=== PATIENT | female | born 1980 | race African-American/Black ===

== ENCOUNTER → 2017-08-08 | Outpatient (CLI) | payer BC ==
[~2017-08-08] MED LIST: LISI10TA3 PO; METF1000 PO; PERC5TAB12 PO; Z.0.NO CURRENT MEDS
[2017-08-08 11:55] LABS: HEMATOCRIT 36.6 % (35.0-46.0); HEMOGLOBIN 12.5 GM/DL (11.6-15.3); MEAN CORPUSCULAR HEMOGLOBIN 28.1 PG (27.0-34.0); MEAN CORPUSCULAR HGB CONC 34.3 % (32.0-36.0); MEAN PLATELET VOLUME 6.9 FL (7.0-11.0); PLATELET COUNT 379 TH/MM3 (150-450); RED BLOOD COUNT 4.46 MIL/MM3 (4.00-5.30); RED CELL DISTRIBUTION WIDTH 14.3 % (11.6-17.2); WHITE BLOOD COUNT 7.4 TH/MM3 (4.0-11.0)
== END ==
LOC: CPRE 11:04
PROVIDERS: ATTEND Obstetrics & Gynecology
DX: Z01.812 Encounter for preprocedural laboratory examination (principal); O02.1 Missed abortion
CPT/HCPCS: 36415; 85027; 86850; 86900; 86901

== ENCOUNTER 2017-08-10 22:50 | Emergency (ER) | payer BC ==
[~2017-08-10] VITALS: Ht 172.7 cm; Wt 105.0 kg
[~2017-08-10 22:50] MED LIST changes: -ACETAMINOPHEN/HYDROcodone 325 MG/5 MG TAB PO PRN; -CHLORHEXIDINE GLUCONATE 2 % 1 PACK (2 CLOTHS) TOPICAL PRN; -DO NOT ADM ANY ANTICOAGULANT DRUGS PRN; -FAMOTIDINE 20 MG/2 ML VIAL ONE; -LACTATED RINGER'S 1000 ML IV PRN; -LIDOCAINE HCL 1% PF 5 ML SYRINGE OTHER ONE; -METOCLOPRAMIDE HCL 10 MG/2 ML VIAL ONE; -METOPROLOL TARTRATE 25 MG TAB PO PRN; -MIDAZOLAM HCL 2 MG/2 ML VIAL ONE; -ONDANSETRON ODT 4 MG TAB PO PRN; -PERC5TAB12 PO; -POVIDONE IODINE 5% (ANTISEPSIS KIT) 4 APPLICATIONS EACH NARE PRN; -PROPOFOL 200 MG/20 ML AMP IV ONE; -SODIUM CHLORID 0.9% 500 ML IV PRN; -Z.0.NO CURRENT MEDS; -oxyCODONE/ACETAMINOPHEN 5 MG/325 MG TAB ONE; -oxyCODONE/ACETAMINOPHEN 5 MG/325 MG TAB PO ONE
[2017-08-10 23:20] VITALS: BP 146/90; PULSE 130; RESP 18; TEMP 97.6; O2SAT 100
[2017-08-11 00:34] VITALS: BP 127/73; PULSE 119; RESP 18; O2SAT 100
--- NOTE | 2017-08-11 00:56 | PD ---
HPI Chief Complaint: Abdominal Pain Time Seen by Provider: 00:29 Travel History International Travel<30 days: No Contact w/Intl Traveler<30days: No Traveled to known affect area: No History of Present Illness HPI Patient is a 37-year-old female who had a D&C earlier today she said she was 10 weeks . Patient is having severe cramping lower back pain she said the bleeding is slowing down but she is worried due to the fact that she feels a lot of pressure in her back and her abdomen. She said that she is not as worried about the bleeding as she is about the pressure feeling as if she is going to explode after urinating worried that she could have UTI she took 3 hydrocodone without relief of her symptoms she is mildly tachycardic 120 afebrile and her abdomen pain is diffuse and mid lower back PFSH Past Medical History Cancer: No Cardiovascular Problems: No High Cholesterol: Yes Diabetes: Yes Patient Takes Glucophage: No Diminished Hearing: No Endocrine: No Hepatitis: No Hiatal Hernia: No Immune Disorder: No Musculoskeletal: No Neurologic: No Psychiatric: No Reproductive: Yes Respiratory: No Immunizations Current: Yes Thyroid Disease: No ?: Not Dilation and Curettage (D&C): Yes Past Surgical History AICD: No Joint Replacement: No Pacemaker: No Social History Alcohol Use: Yes Tobacco Use: Yes Substance Use: No Allergies-Medications (Allergen,Severity, Reaction): Coded Allergies: No Known Allergies (Verified Allergy, Unknown, 08/11/17) Reported Meds & Prescriptions Reported Meds & Active Scripts Active Reported Lisinopril 10 Mg Tab 10 Mg PO DAILY Metformin (Metformin HCl) 1,000 Mg Tab 1,000 Mg PO BIDPC Review of Systems Except as stated in HPI: all other systems reviewed are Neg Physical Exam Narrative GENERAL: Patient appears uncomfortable slightly tachycardic sinus tach 112-120 mildly obese SKIN: Warm and dry. HEAD: Atraumatic. Normocephalic. EYES: Pupils equal and round. No scleral icterus. No injection or drainage. ENT: No nasal bleeding or discharge. Mucous membranes pink and moist. NECK: Trachea midline. No JVD. CARDIOVASCULAR: Regular rate and rhythm. RESPIRATORY: No accessory muscle use. Clear to auscultation. Breath sounds equal bilaterally. GASTROINTESTINAL: Abdomen diffuse lower abdominal pain as well as mid lower back pain MUSCULOSKELETAL: Extremities without clubbing, cyanosis, or edema. No obvious deformities. NEUROLOGICAL: Awake and alert. No obvious cranial nerve deficits. Motor grossly within normal limits. Five out of 5 muscle strength in the arms and legs. Normal speech. PSYCHIATRIC: Appropriate mood and affect; insight and judgment normal. Data Data Last Documented VS Vital Signs Date Time Temp Pulse Resp B/P (MAP) Pulse Ox O2 Delivery O2 Flow Rate FiO2 08/11/17 06:08 08/11/17 00:34 119 18 100 Room Air 08/10/17 23:20 97.6 Orders Orders Sodium Chlor 0.9% 1000 Ml Inj (Ns 1000 M (08/11/17 01:00) Morphine Inj (Morphine Inj) (08/11/17 01:00) Complete Blood Count With Diff (08/11/17 00:51) Comprehensive Metabolic Panel (08/11/17 00:51) Urinalysis - C+S If Indicated (08/11/17 00:51) Complete Blood Count With Diff (08/11/17 05:13) Ed Discharge Order (08/11/17 06:07) Labs Laboratory Tests Test 08/11/17 00:58 08/11/17 05:41 White Blood Count 12.1 TH/MM3 12.4 TH/MM3 Red Blood Count 3.69 MIL/MM3 3.61 MIL/MM3 Hemoglobin 10.5 GM/DL 9.9 GM/DL Hematocrit 30.2 % 29.9 % Mean Corpuscular Volume 81.9 FL 82.7 FL Mean Corpuscular Hemoglobin 28.6 PG 27.5 PG Mean Corpuscular Hemoglobin Concent 34.9 % 33.2 % Red Cell Distribution Width 14.1 % 14.1 % Platelet Count 305 TH/MM3 299 TH/MM3 Mean Platelet Volume 7.1 FL 6.8 FL Neutrophils (%) (Auto) 91.9 % 80.4 % Lymphocytes (%) (Auto) 6.0 % 14.7 % Monocytes (%) (Auto) 1.8 % 4.5 % Eosinophils (%) (Auto) 0.0 % 0.1 % Basophils (%) (Auto) 0.3 % 0.3 % Neutrophils # (Auto) 11.1 TH/MM3 10.0 TH/MM3 Lymphocytes # (Auto) 0.7 TH/MM3 1.8 TH/MM3 Monocytes # (Auto) 0.2 TH/MM3 0.6 TH/MM3 Eosinophils # (Auto) 0.0 TH/MM3 0.0 TH/MM3 Basophils # (Auto) 0.0 TH/MM3 0.0 TH/MM3 CBC Comment DIFF FINAL DIFF FINAL Differential Comment Urine Color LIGHT-YELLOW Urine Turbidity CLEAR Urine pH 5.0 Urine Specific [place] 1.028 Urine Protein NEG mg/dL Urine Glucose (UA) 1000 mg/dL Urine Ketones 40 mg/dL Urine Occult Blood MOD Urine Nitrite NEG Urine Bilirubin NEG Urine Urobilinogen LESS THAN 2.0 MG/DL Urine Leukocyte Esterase NEG Urine RBC 13 /hpf Urine WBC 1 /hpf Microscopic Urinalysis Comment CULT NOT INDICATED Blood Urea Nitrogen 12 MG/DL Creatinine 1.11 MG/DL Random Glucose 385 MG/DL Total Protein 7.4 GM/DL Albumin 3.3 GM/DL Calcium Level 8.9 MG/DL Alkaline Phosphatase 77 U/L Aspartate Amino Transf (AST/SGOT) 17 U/L Alanine Aminotransferase (ALT/SGPT) 18 U/L Total Bilirubin 0.2 MG/DL Sodium Level 134 MEQ/L Potassium Level 4.7 MEQ/L Chloride Level 101 MEQ/L Carbon Dioxide Level 19.7 MEQ/L Anion Gap 13 MEQ/L Estimat Glomerular Filtration Rate 67 ML/MIN [facility] Medical Decision Making Medical Screen Exam Complete: Yes Emergency Medical Condition: Yes Differential Diagnosis Postoperative pain normal uterine contractions post D&C versus septic versus UTI versus retained products Narrative Course Patient is given fluid pain medication observed in the ER her H&H remained stable there is no change it was hematocrit was 6:30 hours it is 29 she has not had any recurrence of bleeding she is given pain medication and discharge follow -up as an outpatient I do not think is necessary to do ultrasound to look for retained products as it was too soon after the procedure and the inflammation and bleeding would still be present she has not had any significant hemorrhaging while in the ER and is discharged to follow-up with her art objects repairer today Diagnosis Primary Impression: Post-operative pain Patient Instructions: Dilation and Curettage (GEN), General Instructions Scripts Oxycodone-Acetaminophen (Percocet) 5-325 mg Tab 1-2 TAB PO Q6H Y for PAIN, #10 TAB 0 Refills Prov: Surya Art MD 08/11/17 Disposition: DISCHARGE HOME Condition: Good Surya Art MD August 11, 2017 00:56
[2017-08-11] MEDS ORDERED: MORPHINE SULFATE 4 MG/ML INJ IV PUSH ONE (01:00)
[2017-08-11] MEDS ORDERED: SODIUM CHLOR 0.9% 1000 ML INJ 1,000 ML IV ONE (01:00)
[2017-08-11 01:26] LABS: BILIRUBIN, URINE NEG (NEG); BLOOD, URINE MOD (NEG); GLUCOSE,URINE 1000 mg/dL (NEG); KETONE, URINE 40 mg/dL (NEG); NITRITE,URINE NEG (NEG); URINE COLOR LIGHT-YELLOW (YELLW/STRAW); URINE LEUKOCYTE ESTERASE NEG (NEG)
[2017-08-11 01:27] LABS: AUTOMATED NEUTROPHIL # 11.1 TH/MM3 (1.8-7.7); BASOPHIL % 0.3 % (0.0-2.0); HEMATOCRIT 30.2 % (35.0-46.0); HEMOGLOBIN 10.5 GM/DL (11.6-15.3); LYMPHOCYTE # 0.7 TH/MM3 (1.0-4.8); MEAN CELL VOLUME 81.9 FL (80.0-100.0); MEAN CORPUSCULAR HEMOGLOBIN 28.6 PG (27.0-34.0); MEAN CORPUSCULAR HGB CONC 34.9 % (32.0-36.0); MEAN PLATELET VOLUME 7.1 FL (7.0-11.0); MONO % 1.8 % (0.0-8.0); MONOCYTE # 0.2 TH/MM3 (0-0.9); NEUT % 91.9 % (16.0-70.0); PLATELET COUNT 305 TH/MM3 (150-450); RED BLOOD COUNT 3.69 MIL/MM3 (4.00-5.30); RED CELL DISTRIBUTION WIDTH 14.1 % (11.6-17.2); WHITE BLOOD COUNT 12.1 TH/MM3 (4.0-11.0)
[2017-08-11 01:41] LABS: ALKALINE PHOSPHATASE 77 U/L (45-117); TOTAL BILIRUBIN ADULT 0.2 MG/DL (0.2-1.0); TOTAL PROTEIN 7.4 GM/DL (6.4-8.2)
[2017-08-11 01:42] LABS: ALBUMIN 3.3 GM/DL (3.4-5.0); ALT (GPT) 18 U/L (10-53); AST (GOT) 17 U/L (15-37); BICARBONATE 19.7 MEQ/L (21.0-32.0); BLOOD UREA NITROGEN 12 MG/DL (7-18); CALCIUM 8.9 MG/DL (8.5-10.1); CHLORIDE 101 MEQ/L (98-107); CREATININE 1.11 MG/DL (0.50-1.00); GLOMERULAR FILTRATION RATE 67 ML/MIN (>89); GLUCOSE,RANDOM 385 MG/DL (74-106); SODIUM (NA) 134 MEQ/L (136-145)
--- NOTE | 2017-08-11 02:07 | PD ---
HPI Chief Complaint: Abdominal Pain Time Seen by Provider: 00:29 Travel History International Travel<30 days: No Contact w/Intl Traveler<30days: No Traveled to known affect area: No History of Present Illness HPI This report is in ERROR Please disregard this report and all prior copies ! This report is in ERROR Please disregard this report and all prior copies ! This report is in ERROR Please disregard this report and all prior copies ! PFSH Past Medical History Cancer: No Cardiovascular Problems: No High Cholesterol: Yes Diabetes: Yes Patient Takes Glucophage: No Diminished Hearing: No Endocrine: No Hepatitis: No Hiatal Hernia: No Immune Disorder: No Musculoskeletal: No Neurologic: No Psychiatric: No Reproductive: Yes Respiratory: No Immunizations Current: Yes Thyroid Disease: No ?: Not Dilation and Curettage (D&C): Yes Past Surgical History AICD: No Joint Replacement: No Pacemaker: No Social History Alcohol Use: Yes Tobacco Use: Yes Substance Use: No Allergies-Medications (Allergen,Severity, Reaction): Coded Allergies: No Known Allergies (Verified Allergy, Unknown, 08/11/17) Reported Meds & Prescriptions Reported Meds & Active Scripts Active Reported Lisinopril 10 Mg Tab 10 Mg PO DAILY Metformin (Metformin HCl) 1,000 Mg Tab 1,000 Mg PO BIDPC Physical Exam Narrative This report is in ERROR Please disregard this report and all prior copies ! This report is in ERROR Please disregard this report and all prior copies ! This report is in ERROR Please disregard this report and all prior copies ! Data Data Last Documented VS Vital Signs Date Time Temp Pulse Resp B/P (MAP) Pulse Ox O2 Delivery O2 Flow Rate FiO2 08/11/17 06:08 08/11/17 00:34 119 18 100 Room Air 08/10/17 23:20 97.6 Orders Orders Sodium Chlor 0.9% 1000 Ml Inj (Ns 1000 M (08/11/17 01:00) Morphine Inj (Morphine Inj) (08/11/17 01:00) Complete Blood Count With Diff (08/11/17 00:51) Comprehensive Metabolic Panel (08/11/17 00:51) Urinalysis - C+S If Indicated (08/11/17 00:51) Complete Blood Count With Diff (08/11/17 05:13) Ed Discharge Order (08/11/17 06:07) Labs Laboratory Tests Test 08/11/17 00:58 08/11/17 05:41 White Blood Count 12.1 TH/MM3 12.4 TH/MM3 Red Blood Count 3.69 MIL/MM3 3.61 MIL/MM3 Hemoglobin 10.5 GM/DL 9.9 GM/DL Hematocrit 30.2 % 29.9 % Mean Corpuscular Volume 81.9 FL 82.7 FL Mean Corpuscular Hemoglobin 28.6 PG 27.5 PG Mean Corpuscular Hemoglobin Concent 34.9 % 33.2 % Red Cell Distribution Width 14.1 % 14.1 % Platelet Count 305 TH/MM3 299 TH/MM3 Mean Platelet Volume 7.1 FL 6.8 FL Neutrophils (%) (Auto) 91.9 % 80.4 % Lymphocytes (%) (Auto) 6.0 % 14.7 % Monocytes (%) (Auto) 1.8 % 4.5 % Eosinophils (%) (Auto) 0.0 % 0.1 % Basophils (%) (Auto) 0.3 % 0.3 % Neutrophils # (Auto) 11.1 TH/MM3 10.0 TH/MM3 Lymphocytes # (Auto) 0.7 TH/MM3 1.8 TH/MM3 Monocytes # (Auto) 0.2 TH/MM3 0.6 TH/MM3 Eosinophils # (Auto) 0.0 TH/MM3 0.0 TH/MM3 Basophils # (Auto) 0.0 TH/MM3 0.0 TH/MM3 CBC Comment DIFF FINAL DIFF FINAL Differential Comment Urine Color LIGHT-YELLOW Urine Turbidity CLEAR Urine pH 5.0 Urine Specific [place] 1.028 Urine Protein NEG mg/dL Urine Glucose (UA) 1000 mg/dL Urine Ketones 40 mg/dL Urine Occult Blood MOD Urine Nitrite NEG Urine Bilirubin NEG Urine Urobilinogen LESS THAN 2.0 MG/DL Urine Leukocyte Esterase NEG Urine RBC 13 /hpf Urine WBC 1 /hpf Microscopic Urinalysis Comment CULT NOT INDICATED Blood Urea Nitrogen 12 MG/DL Creatinine 1.11 MG/DL Random Glucose 385 MG/DL Total Protein 7.4 GM/DL Albumin 3.3 GM/DL Calcium Level 8.9 MG/DL Alkaline Phosphatase 77 U/L Aspartate Amino Transf (AST/SGOT) 17 U/L Alanine Aminotransferase (ALT/SGPT) 18 U/L Total Bilirubin 0.2 MG/DL Sodium Level 134 MEQ/L Potassium Level 4.7 MEQ/L Chloride Level 101 MEQ/L Carbon Dioxide Level 19.7 MEQ/L Anion Gap 13 MEQ/L Estimat Glomerular Filtration Rate 67 ML/MIN MDM Medical Decision Making Medical Screen Exam Complete: Yes Emergency Medical Condition: Yes Medical Record Reviewed: Yes Differential Diagnosis This report is in ERROR Please disregard this report and all prior copies ! This report is in ERROR Please disregard this report and all prior copies ! This report is in ERROR Please disregard this report and all prior copies ! Narrative Course This report is in ERROR Please disregard this report and all prior copies ! This report is in ERROR Please disregard this report and all prior copies ! This report is in ERROR Please disregard this report and all prior copies ! Surya Art MD August 11, 2017 02:07
[2017-08-11 05:56] LABS: BASOPHIL % 0.3 % (0.0-2.0); EOSINOPHIL % 0.1 % (0.0-4.0); HEMATOCRIT 29.9 % (35.0-46.0); HEMOGLOBIN 9.9 GM/DL (11.6-15.3); LYMPH % 14.7 % (9.0-44.0); LYMPHOCYTE # 1.8 TH/MM3 (1.0-4.8); MEAN CELL VOLUME 82.7 FL (80.0-100.0); MEAN CORPUSCULAR HEMOGLOBIN 27.5 PG (27.0-34.0); MEAN CORPUSCULAR HGB CONC 33.2 % (32.0-36.0); MEAN PLATELET VOLUME 6.8 FL (7.0-11.0); MONO % 4.5 % (0.0-8.0); MONOCYTE # 0.6 TH/MM3 (0-0.9); NEUT % 80.4 % (16.0-70.0); PLATELET COUNT 299 TH/MM3 (150-450); RED BLOOD COUNT 3.61 MIL/MM3 (4.00-5.30); RED CELL DISTRIBUTION WIDTH 14.1 % (11.6-17.2); WHITE BLOOD COUNT 12.4 TH/MM3 (4.0-11.0)
[2017-08-11] MEDS ORDERED: PERC5TAB12 PO (06:18)
== END 2017-08-11 06:22 | disposition home or self-care (01) ==
LOC: NEPE 22:50
DX: G89.18 Other acute postprocedural pain (principal); R00.0 Tachycardia, unspecified; E66.9 Obesity, unspecified; E78.00 Pure hypercholesterolemia, unspecified; E11.9 Type 2 diabetes mellitus without complications; Z72.0 Tobacco use; Z79.899 Other long term (current) drug therapy
CPT/HCPCS: 80053; 81001; 85025; 96361; 96374; 99284; J2270; J7030

== ENCOUNTER → 2017-08-10 | Day surgery (SDC) | payer BC ==
[~2017-08-10] VITALS: Ht 172.7 cm; Wt 107.7 kg
[~2017-08-10] MED LIST changes: +ACETAMINOPHEN/HYDROcodone 325 MG/5 MG TAB PO PRN; +CHLORHEXIDINE GLUCONATE 2 % 1 PACK (2 CLOTHS) TOPICAL PRN; +DO NOT ADM ANY ANTICOAGULANT DRUGS PRN; +FAMOTIDINE 20 MG/2 ML VIAL ONE; +LACTATED RINGER'S 1000 ML IV PRN; +LIDOCAINE HCL 1% PF 5 ML SYRINGE OTHER ONE; +METOCLOPRAMIDE HCL 10 MG/2 ML VIAL ONE; +METOPROLOL TARTRATE 25 MG TAB PO PRN; +MIDAZOLAM HCL 2 MG/2 ML VIAL ONE; +ONDANSETRON ODT 4 MG TAB PO PRN; +POVIDONE IODINE 5% (ANTISEPSIS KIT) 4 APPLICATIONS EACH NARE PRN; +PROPOFOL 200 MG/20 ML AMP IV ONE; +SODIUM CHLORID 0.9% 500 ML IV PRN; +oxyCODONE/ACETAMINOPHEN 5 MG/325 MG TAB ONE; +oxyCODONE/ACETAMINOPHEN 5 MG/325 MG TAB PO ONE
--- NOTE | 2017-08-10 15:12 | MP ---
cc: Henri Pleitez MD DATE OF OPERATION: 08/10/2017 PREOPERATIVE DIAGNOSIS: Missed at 9 weeks 2 days. POSTOPERATIVE DIAGNOSIS: Missed at 9 weeks 2 days. PROCEDURE PERFORMED: Dilation and evacuation of the uterus. ANESTHESIA: General. SURGEON: Henri Pleitez MD FINDINGS: Uterus slightly enlarged 8-10 weeks size. The cervix was closed. No bleeding. The POC was normal amount and the uterus was clean at the end. COMPLICATIONS: None. COUNTS: Correct. ESTIMATED BLOOD LOSS: 200 mL FLUIDS: Crystalloid. CONDITION: The patient tolerated the procedure well and went to the recovery room in good condition. PROCEDURE: The patient was taken to the operating room and identified by name band and verbally, given a general anesthetic, carefully placed in dorsal lithotomy position, prepped and draped in the usual sterile manner. A timeout was taken. Examination under anesthesia was carried out with the above findings. A weighted speculum was placed in the vagina. The anterior lip of the cervix was grasped with a single-tooth tenaculum. The cervix serially dilated up to 10 mm, and a 10 mm curved cannula was placed into the uterine cavity and the products of conception removed by suction. This was followed by sharp curettage, which was followed again by the suction. At this point, bleeding was minimal. She tolerated the procedure well. Instruments were removed. She went to the recovery room in good condition. Henri Pleitez MD RJV/TL , 02:52 PM , 03:11 PM
[2017-08-10 16:06] VITALS: BP 112/70; PULSE 105; RESP 16; TEMP 98.2; O2SAT 100
== END | disposition home or self-care (01) ==
LOC: HSDC 11:03
PROVIDERS: ATTEND Obstetrics & Gynecology
DX: O02.1 Missed abortion (principal)
CPT/HCPCS: 01965; 59820; 88305; J2250; J2765; J3010

== ENCOUNTER 2017-08-11 14:48 | Emergency (ER) | payer BC ==
[~2017-08-11] VITALS: Ht 172.7 cm; Wt 108.0 kg
[~2017-08-11 14:48] MED LIST changes: +PERC5TAB12 PO
[2017-08-11 15:46] VITALS: BP 136/62; PULSE 123; RESP 17; TEMP 98.7; O2SAT 100
[2017-08-11 17:16] LABS: AUTOMATED NEUTROPHIL # 9.8 TH/MM3 (1.8-7.7); BASOPHIL # 0.1 TH/MM3 (0-0.2); EOSINOPHIL # 0.1 TH/MM3 (0-0.4); EOSINOPHIL % 0.6 % (0.0-4.0); HEMATOCRIT 31.4 % (35.0-46.0); HEMOGLOBIN 10.3 GM/DL (11.6-15.3); LYMPHOCYTE # 3.8 TH/MM3 (1.0-4.8); MEAN CELL VOLUME 83.8 FL (80.0-100.0); MEAN CORPUSCULAR HEMOGLOBIN 27.4 PG (27.0-34.0); MEAN CORPUSCULAR HGB CONC 32.7 % (32.0-36.0); MEAN PLATELET VOLUME 7.2 FL (7.0-11.0); MONOCYTE # 0.9 TH/MM3 (0-0.9); NEUT % 66.4 % (16.0-70.0); PLATELET COUNT 335 TH/MM3 (150-450); RED BLOOD COUNT 3.75 MIL/MM3 (4.00-5.30); RED CELL DISTRIBUTION WIDTH 14.1 % (11.6-17.2); WHITE BLOOD COUNT 14.8 TH/MM3 (4.0-11.0)
[2017-08-11 17:24] LABS: INTERNATIONAL NORMALIZED RATIO 1.1 RATIO; PROTHROMBIN TIME - PATIENT 11.1 SEC (9.8-11.6)
[2017-08-11 17:52] LABS: ALKALINE PHOSPHATASE 73 U/L (45-117); ALT (GPT) 20 U/L (10-53); TOTAL BILIRUBIN ADULT 0.2 MG/DL (0.2-1.0); TOTAL PROTEIN 7.5 GM/DL (6.4-8.2)
[2017-08-11 17:54] LABS: ALBUMIN 3.3 GM/DL (3.4-5.0); AST (GOT) 13 U/L (15-37); BICARBONATE 22.1 MEQ/L (21.0-32.0); BLOOD UREA NITROGEN 10 MG/DL (7-18); CALCIUM 8.9 MG/DL (8.5-10.1); CHLORIDE 105 MEQ/L (98-107); CREATININE 1.04 MG/DL (0.50-1.00); GLOMERULAR FILTRATION RATE 72 ML/MIN (>89); GLUCOSE,RANDOM 298 MG/DL (74-106); SODIUM (NA) 138 MEQ/L (136-145)
--- NOTE | 2017-08-11 18:40 | PD ---
HPI Chief Complaint: Medical Clearance Time Seen by Provider: 17:33 Travel History International Travel<30 days: No Contact w/Intl Traveler<30days: No Traveled to known affect area: No History of Present Illness HPI 37-year-old female that presents to the ED for evaluation of possible DVT to the right leg. Per patient she had a D&C yesterday. Patient was evaluated at this hospital as she started having more abdominal pain and back pain. At that time she had a workup was essentially unremarkable. She felt better and she was able to go home with no issues. Per patient she started noticing that she had numbness and tingling to the right leg especially to the count. She apparently contacted her AIRPORT DUTY MANAGER doctor who recommended that she gets an ultrasound to rule out DVT. She denies any chest pain or shortness of breath. Per patient she still has some abdominal discomfort and bleeding from the D&C but he states that it feels improved. She denies any fevers chills or sweats. No back pain. Per patient she does not really have pain on the carpal more numbness and tingling. No allergies to medication. Has not taken anything for this. Per patient the pain in the abdomen is cramping in his 4 out of 10. PFSH Past Medical History Cancer: No Cardiovascular Problems: No High Cholesterol: Yes Diabetes: Yes Patient Takes Glucophage: Yes (METFORMIN) Diminished Hearing: No Endocrine: No Hepatitis: No Hiatal Hernia: No Immune Disorder: No Musculoskeletal: No Neurologic: No Psychiatric: No Reproductive: Yes Respiratory: No Immunizations Current: Yes Thyroid Disease: No ?: Not Dilation and Curettage (D&C): Yes Past Surgical History AICD: No Joint Replacement: No Pacemaker: No Other Surgery: No Social History Alcohol Use: Yes (OCC) Tobacco Use: Yes Substance Use: No Allergies-Medications (Allergen,Severity, Reaction): Coded Allergies: No Known Allergies (Verified Allergy, Unknown, 08/11/17) Reported Meds & Prescriptions Reported Meds & Active Scripts Active Reported Lisinopril 10 Mg Tab 10 Mg PO DAILY Metformin (Metformin HCl) 1,000 Mg Tab 1,000 Mg PO BIDPC Review of Systems Except as stated in HPI: all other systems reviewed are Neg Physical Exam Narrative GENERAL: SKIN: Warm and dry. HEAD: Atraumatic. Normocephalic. EYES: Pupils equal and round. No scleral icterus. No injection or drainage. ENT: No nasal bleeding or discharge. Mucous membranes pink and moist. Tongue is midline. No uvula deviation. NECK: Trachea midline. No JVD. CARDIOVASCULAR: Regular rate and rhythm. No murmurs, S3, S4. RESPIRATORY: No accessory muscle use. Clear to auscultation. Breath sounds equal bilaterally. GASTROINTESTINAL: Abdomen soft, non-tender, nondistended. Hepatic and splenic margins not palpable. MUSCULOSKELETAL: Extremities without clubbing, cyanosis, or edema. No obvious deformities. Full range of motion of the upper and lower extremities bilaterally. 2+ pulses bilaterally. No obvious calf tenderness but subjective numbness on the leg. Sensation intact otherwise. Able to ambulate with no issues. Strength within normal limits bilaterally. NEUROLOGICAL: Awake and alert. No obvious cranial nerve deficits. Motor grossly within normal limits. Five out of 5 muscle strength in the arms and legs. Normal speech. PSYCHIATRIC: Appropriate mood and affect; insight and judgment normal. Data Data Last Documented VS Vital Signs Date Time Temp Pulse Resp B/P (MAP) Pulse Ox O2 Delivery O2 Flow Rate FiO2 08/11/17 18:59 105 18 144/64 (90) 99 Room Air 08/11/17 15:46 98.7 Orders Orders Complete Blood Count With Diff (08/11/17 15:54) Comprehensive Metabolic Panel (08/11/17 15:54) Prothrombin Time / Inr (Pt) (08/11/17 15:54) Us Leg Venous Doppler (08/11/17 ) Us Pelvis Comp [place] Maker/Non-Preg (08/11/17 ) Ed Discharge Order (08/11/17 21:28) Labs Laboratory Tests Test 08/11/17 16:41 White Blood Count 14.8 TH/MM3 Red Blood Count 3.75 MIL/MM3 Hemoglobin 10.3 GM/DL Hematocrit 31.4 % Mean Corpuscular Volume 83.8 FL Mean Corpuscular Hemoglobin 27.4 PG Mean Corpuscular Hemoglobin Concent 32.7 % Red Cell Distribution Width 14.1 % Platelet Count 335 TH/MM3 Mean Platelet Volume 7.2 FL Neutrophils (%) (Auto) 66.4 % Lymphocytes (%) (Auto) 26.0 % Monocytes (%) (Auto) 6.0 % Eosinophils (%) (Auto) 0.6 % Basophils (%) (Auto) 1.0 % Neutrophils # (Auto) 9.8 TH/MM3 Lymphocytes # (Auto) 3.8 TH/MM3 Monocytes # (Auto) 0.9 TH/MM3 Eosinophils # (Auto) 0.1 TH/MM3 Basophils # (Auto) 0.1 TH/MM3 CBC Comment DIFF FINAL Differential Comment Prothrombin Time 11.1 SEC Prothromb Time International Ratio 1.1 RATIO Blood Urea Nitrogen 10 MG/DL Creatinine 1.04 MG/DL Random Glucose 298 MG/DL Total Protein 7.5 GM/DL Albumin 3.3 GM/DL Calcium Level 8.9 MG/DL Alkaline Phosphatase 73 U/L Aspartate Amino Transf (AST/SGOT) 13 U/L Alanine Aminotransferase (ALT/SGPT) 20 U/L Total Bilirubin 0.2 MG/DL Sodium Level 138 MEQ/L Potassium Level 4.0 MEQ/L Chloride Level 105 MEQ/L Carbon Dioxide Level 22.1 MEQ/L Anion Gap 11 MEQ/L Estimat Glomerular Filtration Rate 72 ML/MIN MDM Medical Decision Making Medical Screen Exam Complete: Yes Emergency Medical Condition: Yes Medical Record Reviewed: Yes Interpretation(s) CBC & BMP Diagram 08/11/17 16:41 Total Protein 7.5, Albumin 3.3 L, Calcium Level 8.9, Alkaline Phosphatase 73, Aspartate Amino Transf (AST/SGOT) 13 L, Alanine Aminotransferase (ALT/SGPT) 20, Total Bilirubin 0.2 Last Impressions Pelvis Ultrasound 08/11/17 0000 Signed Impressions: CONCLUSION: 1. Status post dilatation and curettage performed yesterday with complex heter ogeneous fluid in the endometrium most characteristic of hemorrhage and postope rative change. 2. 6 cm heterogeneous mass left ovary possibly a hemorrhagic cyst or endometri rudy. Close sonographic follow-up recommended in the next several weeks to exclu de soft tissue mass. 3. Small follicle cyst right ovary. Lower Extremity Ultrasound 08/11/17 0000 Signed Impressions: CONCLUSION: 1. The study is negative for lower extremity deep venous thrombosis. Differential Diagnosis DVT versus postop pain versus neuropathy versus radiculopathy Narrative Course 37-year-old female that presents to the ED for evaluation of possible DVT. Patient was properly examined and was found to have signs and symptoms of unclear etiology of possible related to DVT. Ultrasound was ordered. Labs were ordered in triage and did show an elevated white blood cell count. Likely secondary to the surgery but I had an ultrasound of the pelvis during sign of infection as well as ultrasound of the legs. Ultrasound showed no sign of acute disease. Patient was reassured. Patient does have some postoperative changes as well as ovarian issues. Patient was told of the results and is to follow-up with her AIRPORT DUTY MANAGER. She understands and agrees. No sign of acute disease at this time. Hemoglobin has been normal. Patient was told that if anything worsens she is to come back to the ED. Patient every has pain medication at home. See ED if worsening symptoms. Follow-up with PCP. Diagnosis Primary Impression: Right leg numbness Additional Impression: Post-operative pain Patient Instructions: General Instructions Additional Instructions: Follow-up with your surgeon. See ED if worsening symptoms. Continue taking medications prescribed by your doctor for pain as needed. Med/Other Pt SpecificInfo: No Change to Meds Disposition: 01 DISCHARGE HOME Condition: Stable Justyn Rai August 11, 2017 18:40
[2017-08-11 18:59] VITALS: BP 144/64; PULSE 105; RESP 18; O2SAT 99
--- NOTE | 2017-08-11 20:51 | RADRPT ---
EXAM DATE: 08/11/2017 8:44 PM EDT AGE/SEX: 37 years / Female INDICATIONS: Pain in the right leg s/p surgery yesterday. CLINICAL DATA: This is the patient's initial encounter. Patient reports that signs and symptoms have been present for 1 day and indicates a pain score of 4/10. MEDICAL/SURGICAL HISTORY: Diabetes mellitus type II. Hypercholesterolemia. . D&C 08/10/17. COMPARISON: No prior [place] exams available for comparison. No external comparison. TECHNIQUE: Venous ultrasound of both lower extremities was performed from the inguinal ligament to t he proximal calf. Real-time, color Doppler and spectral tracing, compression and augmentation techni ques were used. FINDINGS: There is normal compressibility of the deep venous system from the inguinal region to the proximal ca lf. No echogenic clot is seen in the lumen of the common femoral, femoral, popliteal, and posterior tibial veins. There is a normal response of the venous system to proximal and distal augmentation an d respiration. CONCLUSION: 1. The study is negative for lower extremity deep venous thrombosis. Electronically signed by: Eddi Liz MD 08/11/2017 8:49 PM EDT
--- NOTE | 2017-08-11 21:21 | RADRPT ---
EXAM DATE: 08/11/2017 8:41 PM EDT AGE/SEX: 37 years / Female INDICATIONS: Pelvic pain and vaginal bleeding s/p D&C yesterday. CLINICAL DATA: This is the patient's initial encounter. Patient reports that signs and symptoms have been present for 1 day and indicates a pain score of 3/10. MEDICAL/SURGICAL HISTORY: Diabetes mellitus type II. Hypercholesterolemia. . D&C - 08/10/17 COMPARISON: No prior [place] exams available for comparison. No external comparison. MEASUREMENTS: Uterus:__12.2 x 9.0 x 7.8 cm Endometrial Stripe:__19 mm Right Ovary:__ 3.8 x 4.4 x 1.9 cm Left Ovary:__ 7.3 x 6.2 x 4.3 cm FINDINGS: Patient is reportedly status post a dilatation and curettage yesterday. There is a heterogeneous comp michael fluid within the endometrium probably related to hemorrhage from recent surgical procedure. No de finite retained products of conception. Right ovary contains a 1.6 cm follicle. Left ovary contains a circumscribed but heterogeneous mass containing mixed echogenicity. This could represent a hemorrhagic cyst or endometrioma. No free fluid in the cul-de-sac. CONCLUSION: 1. Status post dilatation and curettage performed yesterday with complex heterogeneous fluid in the endometrium most characteristic of hemorrhage and postoperative change. 2. 6 cm heterogeneous mass left ovary possibly a hemorrhagic cyst or endometrioma. Close sonographic follow-up recommended in the next several weeks to exclude soft tissue mass. 3. Small follicle cyst right ovary. Electronically signed by: Deyvi Gunn MD 08/11/2017 9:20 PM EDT
== END 2017-08-11 22:14 | disposition home or self-care (01) ==
LOC: NEPC 14:48
DX: R20.0 Anesthesia of skin (principal); G89.18 Other acute postprocedural pain; M79.604 Pain in right leg; R10.2 Pelvic and perineal pain; E11.9 Type 2 diabetes mellitus without complications; Z79.84 Long term (current) use of oral hypoglycemic drugs
CPT/HCPCS: 76856; 80053; 85025; 85610; 93971